=== PATIENT | female | born 1945 | race Two or more races ===

== ENCOUNTER 2017-06-05 11:36 | Outpatient (CLI) | payer OTHER ==
[~2017-06-05 11:36] MED LIST: NABUMETONE500 MG PO; PERCOCET 5/3251 TAB PO
== END 2017-06-05 11:42 | disposition home or self-care (01) ==
LOC: RAD 11:36
DX: M79.671 Pain in right foot (principal); I10 Essential (primary) hypertension; M54.5 Low back pain; E78.89 Other lipoprotein metabolism disorders; E55.9 Vitamin D deficiency, unspecified; N64.89 Other specified disorders of breast; M89.9 Disorder of bone, unspecified

== ENCOUNTER 2017-09-12 12:18 | Emergency (ER) | payer OTHER ==
[~2017-09-12] VITALS: Ht 157.5 cm; Wt 117.9 kg
== END 2017-09-12 17:53 | disposition home or self-care (01) ==
LOC: ER 12:18
DX: S00.03XA Contusion of scalp, initial encounter (principal); W01.198A Fall on same level from slipping, tripping and stumbling with subsequent striking against other object, initial encounter; Y93.89 Activity, other specified; Y92.018 Other place in single-family (private) house as the place of occurrence of the external cause; Y99.8 Other external cause status

== ENCOUNTER 2018-03-27 10:31 | Outpatient (CLI) | payer OTHER | END 2018-03-27 10:40 | disposition home or self-care (01) | LOC: RAD 501 10:31 | DX: M25.562 Pain in left knee (principal); S83.200A Bucket-handle tear of unspecified meniscus, current injury, right knee, initial encounter; I10 Essential (primary) hypertension; M54.5 Low back pain; E78.89 Other lipoprotein metabolism disorders; E55.9 Vitamin D deficiency, unspecified; M89.8X8 Other specified disorders of bone, other site ==

== ENCOUNTER 2018-04-20 09:14 | Outpatient (CLI) | payer OTHER | END 2018-04-20 09:16 | disposition home or self-care (01) | LOC: RAD 09:14 | DX: Z01.818 Encounter for other preprocedural examination (principal); R07.89 Other chest pain ==

== ENCOUNTER 2018-09-21 09:21 | Outpatient (CLI) | payer OTHER | END 2018-09-21 09:23 | disposition home or self-care (01) | LOC: RAD 09:21 | DX: E66.3 Overweight (principal); E66.8 Other obesity; F39 Unspecified mood [affective] disorder; M06.4 Inflammatory polyarthropathy; E55.9 Vitamin D deficiency, unspecified; M15.8 Other polyosteoarthritis; M54.5 Low back pain; M89.8X8 Other specified disorders of bone, other site; E78.89 Other lipoprotein metabolism disorders; M23.52 Chronic instability of knee, left knee; M23.92 Unspecified internal derangement of left knee; M25.561 Pain in right knee ==

== ENCOUNTER 2020-08-14 09:31 | Outpatient (CLI) | payer OTHER | END 2020-08-14 09:44 | disposition home or self-care (01) | LOC: MAMO-SONO 09:31 | PROVIDERS: ATTEND Internal Medicine | DX: Z12.31 Encounter for screening mammogram for malignant neoplasm of breast (principal); E66.3 Overweight; E66.8 Other obesity; F39 Unspecified mood [affective] disorder; M06.4 Inflammatory polyarthropathy; E55.9 Vitamin D deficiency, unspecified; M15.8 Other polyosteoarthritis; M54.5 Low back pain; M89.8X9 Other specified disorders of bone, unspecified site; E78.89 Other lipoprotein metabolism disorders; M23.52 Chronic instability of knee, left knee; Z68.28 Body mass index [BMI] 28.0-28.9, adult ==

== ENCOUNTER 2020-12-10 14:23 | Outpatient (CLI) | payer OTHER | END 2020-12-10 14:28 | disposition home or self-care (01) | LOC: NUCLEAR 14:23 | PROVIDERS: ATTEND Internal Medicine | DX: M89.9 Disorder of bone, unspecified (principal); M15.9 Polyosteoarthritis, unspecified; M54.5 Low back pain; M06.4 Inflammatory polyarthropathy; M81.0 Age-related osteoporosis without current pathological fracture ==

== ENCOUNTER 2021-08-17 08:06 | Outpatient (CLI) | payer OTHER | END 2021-08-17 08:17 | disposition home or self-care (01) | LOC: MAMO-SONO 08:06 | PROVIDERS: ATTEND Internal Medicine | DX: N60.12 Diffuse cystic mastopathy of left breast (principal); N60.11 Diffuse cystic mastopathy of right breast ==

== ENCOUNTER → 2022-09-13 | Outpatient (CLI) | payer OTHER | END | disposition home or self-care (01) | LOC: RAD 09:06 | PROVIDERS: ATTEND Orthopaedic Surgery | DX: M25.561 Pain in right knee (principal); M25.562 Pain in left knee ==

== ENCOUNTER 2022-09-29 09:37 | Outpatient (CLI) | payer OTHER | END 2022-09-29 09:44 | disposition home or self-care (01) | LOC: MAMO-SONO 09:37 | PROVIDERS: ATTEND Internal Medicine | DX: N60.11 Diffuse cystic mastopathy of right breast (principal); N60.12 Diffuse cystic mastopathy of left breast; Z12.31 Encounter for screening mammogram for malignant neoplasm of breast ==

== ENCOUNTER 2023-01-12 13:08 | Outpatient (CLI) | payer OTHER | END 2023-01-12 13:09 | disposition home or self-care (01) | LOC: NUCLEAR 13:08 | PROVIDERS: ATTEND Internal Medicine | DX: M81.0 Age-related osteoporosis without current pathological fracture (principal) ==

== ENCOUNTER → 2025-01-17 10:24 | Outpatient (CLI) | payer OTHER | END | disposition home or self-care (01) | LOC: NUCLEAR 10:24 | PROVIDERS: ATTEND Internal Medicine | DX: M81.0 Age-related osteoporosis without current pathological fracture (principal) ==